=== PATIENT | male | born 1965 | race Caucasian/White ===

== ENCOUNTER 2021-08-05 13:49 | Outpatient (CLI) | payer OTHER ==
[~2021-08-05 13:49] MED LIST: AMLO2.5T2 PO; LISI10TA27 PO; SOTA80TA73 PO; WARF10TA50 PO
== END 2021-08-05 23:59 | disposition home or self-care (01) ==
LOC: RAD 13:49
PROVIDERS: ATTEND Family Medicine
DX: S83.282A Other tear of lateral meniscus, current injury, left knee, initial encounter (principal); M94.262 Chondromalacia, left knee; M71.22 Synovial cyst of popliteal space [Baker], left knee; M25.462 Effusion, left knee; M17.12 Unilateral primary osteoarthritis, left knee; X58.XXXA Exposure to other specified factors, initial encounter; Y93.89 Activity, other specified; Y92.89 Other specified places as the place of occurrence of the external cause; Y99.8 Other external cause status
CPT/HCPCS: 73721

== ENCOUNTER 2022-10-21 06:54 | Day surgery (SDC) | payer OTHER ==
[2022-10-14 15:17] LABS: BASOPHILS % (AUTO) 0.3 % (0-1); EOSINOPHILS # (AUTO) 0.1 X10'3 (0-0.9); EOSINOPHILS % (AUTO) 1.3 % (0-6); LYMPHOCYTES # (AUTO) 2.2 X10'3 (1.1-4.8); LYMPHOCYTES % (AUTO) 23.6 % (21-51); MEAN CORPUSCULAR HEMOGLOBIN 29.7 PG (27.0-31.0); MEAN CORPUSCULAR HGB CONC 34.4 g/dL (33.0-36.5); MEAN CORPUSCULAR VOLUME 86.2 FL (78-98); MEAN PLATELET VOLUME 9.2 FL (7.4-10.4); MONOCYTES # (AUTO) 0.6 X10'3 (0-0.9); MONOCYTES % (AUTO) 6.5 % (2-12); NEUTROPHILS # (AUTO) 6.3 X10'3 (1.8-7.7); NEUTROPHILS % (AUTO) 68.3 % (42-75); PRE OP HEMATOCRIT 43.6 % (42.0-52.0); PRE OP PLATELET COUNT 216 X10'3 (140-440); RED BLOOD COUNT 5.06 X10'6 (4.70-6.10); RED CELL DISTRIBUTION WIDTH 15.1 % (11.5-14.5)
[2022-10-14 15:31] LABS: ALBUMIN 4.2 G/DL (3.4-5.0); ALBUMIN/GLOBULIN RATIO 1.2 (1.1-1.5); ALKALINE PHOSPHATASE 75 IU/L (46-116); BLOOD UREA NITROGEN 19 MG/DL (7-18); BUN/CREATININE RATIO 21.3 (10.0-20.0); CALCIUM 9.2 MG/DL (8.5-10.1); CHLORIDE 102 MMOL/L (99-107); CREATININE 0.89 MG/DL (0.60-1.10); PRE OP ALT 35 U/L (30-65); PRE OP ANION GAP 6 (8-16); PRE OP AST 29 U/L (10-37); PRE OP BILIRUB, TOTAL 0.8 MG/DL (0.0-1.0); PRE OP GLUCOSE 105 MG/DL (70-104); PRE OP POTASSIUM 4.2 MMOL/L (3.4-5.1); PRE OP SODIUM 137 MMOL/L (135-145); TOTAL CARBON DIOXIDE 29.2 MMOL/L (24-32); TOTAL PROTEIN 7.8 G/DL (6.4-8.2); eGFR 88 ML/MIN
[~2022-10-21] VITALS: Ht 182.9 cm; Wt 106.6 kg
[~2022-10-21 06:54] MED LIST changes: +DOCUMENT DATE & TIME OF BETA-BLOCKER PO ONE; +LOP12.5T PO; -SOTA80TA73 PO; +acetaminophen 325mg tablet PO ONE; +cefazolin 2gm/D5W 100mL 100 ML IV ONE; +celeCOXIB 100mg capsule PO ONE; +famotidine 20mg tablet PO ONE; +gabapentin 300mg capsule PO ONE; +metoclopramide 5 mg/ml inj IV ONE; +oxyCODONE SR 10mg (sust. release) tab -2 tabs (20mg) PO ONE; +ringers solution, lacted 1,000 ML IV SCH; +tranexamic acid inj. 1,000 MG in normal saline IV soln 100ML IV ONE; +vancomycin 1,500 MG in NS 300ml IV soln IV ONE
[2022-10-21] MEDS ORDERED: HYDROmorphone 1 mg/ml syringe IV PRN (07:00)
[2022-10-21] MEDS ORDERED: acetaminophen 325mg tablet PO PRN (07:00)
[2022-10-21] MEDS ORDERED: diphenhydrAMINE 25mg capsule PO PRN ×2 (07:00)
[2022-10-21] MEDS ORDERED: HYDROmorphone inj. 0.5 MG/0.5 ML DISP.SYRIN IV PRN (07:00)
[2022-10-21] MEDS ORDERED: HYDROcodone/acetaminophen 10/325mg tab PO PRN ×2 (07:00)
[2022-10-21] MEDS ORDERED: potassium cl 20mEq in 1/2 NS 1,000 ML IV SCH (07:00)
[2022-10-21] MEDS ORDERED: naloxone 0.4 mg/ml inj IV PRN (07:00)
[2022-10-21] MEDS ORDERED: bisacodyl 10mg suppository rectal RC PRN (07:00)
[2022-10-21] MEDS ORDERED: magnesium hydroxide 30ml (MOM) UD suspension PO PRN (07:00)
[2022-10-21] MEDS ORDERED: ondansetron/PF 4mg/2ml inj IV PRN (07:00)
--- NOTE | 2022-10-21 07:48 | NUR ---
PATIENT SURGERY CANCELLED DO TO SCRATCH LEG. OFFICE DR JIMENEZ WILL RESCHEDUAL. DR JIMENEZ TOLD PATIENT TO CONTINUE LOVENOX FOR 2 DAYS AND RESTART COUMADIN TONIGHT AND HAVE PT PTT RECHECKED ON THURSDAY. PATIENT VERBALIZED UNDERSTANDING AND HAS BEEN DISCHARGED. NO IV OR MEDS GIVEN WHILE HERE
[2022-10-21] MEDS ORDERED: gabapentin 300mg capsule PO SCH (08:00)
[2022-10-21] MEDS ORDERED: multivitamins, therapeutics tablet PO SCH (08:00)
[2022-10-21] MEDS ORDERED: ascorbic acid 500mg tablet PO SCH (08:00)
[2022-10-21] MEDS ORDERED: NORMAL SALINE IV ONE (15:30)
[2022-10-21] MEDS ORDERED: TRANEXAMIC ACID IV ONE (15:30)
[2022-10-21] MEDS ORDERED: VANCOMYCIN 1,500MG inj. 1,500 MG in normal saline 500ml IV soln 300 ML IV ONE (20:00)
[2022-10-21] MEDS ORDERED: sennosides 8.6mg tablet PO SCH (21:00)
[2022-10-22] MEDS ORDERED: amLODIPine 5mg tablet PO SCH (08:00)
[2022-10-22] MEDS ORDERED: warfarin 10mg tablet PO SCH (08:00)
[2022-10-22] MEDS ORDERED: lisinopril 10 MG tablet PO SCH (08:00)
[2022-10-22] MEDS ORDERED: metoprolol tartrate 25mg tablet PO SCH (08:00)
[2022-10-22] MEDS ORDERED: celeCOXIB 100mg capsule PO SCH (20:00)
== END 2022-10-21 07:48 | disposition home or self-care (01) ==
LOC: PAS 06:54
PROVIDERS: ATTEND Orthopaedic Surgery
DX: M17.12 Unilateral primary osteoarthritis, left knee (principal); Z53.8 Procedure and treatment not carried out for other reasons; S80.812A Abrasion, left lower leg, initial encounter; I10 Essential (primary) hypertension; Z98.890 Other specified postprocedural states; Z95.2 Presence of prosthetic heart valve; Z87.891 Personal history of nicotine dependence; Z79.899 Other long term (current) drug therapy; X58.XXXA Exposure to other specified factors, initial encounter; Y93.89 Activity, other specified; Y92.89 Other specified places as the place of occurrence of the external cause; Y99.8 Other external cause status
CPT/HCPCS: 36415; 71045; 80053; 85025; 86870; 86885; 86900; 86901; 86905; 87081; J0690; J3370; J3490; J7120